=== PATIENT | female | born 1985 | race Caucasian/White ===

== ENCOUNTER 2022-12-06 06:13 | Emergency (ER) | payer BC ==
[2022-12-06] MEDS ORDERED: Ketorolac 60 MG/2 ML SDV IM ONE (06:42)
[2022-12-06] MEDS ORDERED: Ondansetron 4 MG Tab.DIS PO ONE (06:42)
== END 2022-12-06 07:48 | disposition home or self-care (01) ==
LOC: JD.ED 06:13
DX: N20.0 Calculus of kidney (principal)
CPT/HCPCS: 36415; 80053; 81001; 85025; 96372; 99284; A9270; J1885; 99282

== ENCOUNTER 2025-03-26 09:42 | Day surgery (SDC) | payer BC, OTHER ==
[~2025-03-26 09:42] MED LIST: Sodium Chloride 0.9% 10 ML Syringe FLUSH PRN; Sodium Chloride 0.9% 10 ML Syringe FLUSH SCH
[2025-03-26] MEDS: Lactated Ringers 1,000 ML IV SCH (10:25)
[2025-03-26] MEDS ORDERED: propofoL 500 MG/50 ML 50 ML ONE (10:26)
[2025-03-26] MEDS ORDERED: dexmedeTOMIDine HCl 200 MCG/2 ML SDV ONE (10:28)
[2025-03-26] MEDS ORDERED: Propofol 200 MG/20 ML SDV ONE (12:02)
[2025-03-26] MEDS: Bupivacaine 0.5% 10 ML SDV ONE (12:05)
[2025-03-26] MEDS: EPINEPHrine 1 MG/ML SDV ONE (12:05)
[2025-03-26] MEDS: Lidocaine 1% 10 ML MDV ONE (12:05)
[2025-03-26] MEDS ORDERED: fentaNYL 100 MCG/2 ML SDV ONE (12:07)
[2025-03-26] MEDS ORDERED: Ondansetron 4 MG/2 ML SDV ONE (12:14)
[2025-03-26] MEDS ORDERED: fentaNYL 100 MCG/2 ML SDV IVPUSH PRN (12:28)
[2025-03-26] MEDS ORDERED: Ondansetron 4 MG/2 ML SDV IVPUSH PRN (12:28)
[2025-03-26] MEDS: Ketorolac 30 MG/ML SDV IVPUSH ONE (13:11)
[2025-03-26] MEDS: Acetaminophen/oxyCODONE 325-5 MG Tab PO PRN (13:42)
== END 2025-03-26 14:07 | disposition home or self-care (01) ==
LOC: JD.SDS 09:42
PROVIDERS: ATTEND Surgery
DX: D12.3 Benign neoplasm of transverse colon (principal); D12.7 Benign neoplasm of rectosigmoid junction; K60.30 Anal fistula, unspecified; K57.30 Diverticulosis of large intestine without perforation or abscess without bleeding; K64.8 Other hemorrhoids; K64.4 Residual hemorrhoidal skin tags; Z86.0100 Personal history of colon polyps, unspecified; J45.909 Unspecified asthma, uncomplicated; Z79.899 Other long term (current) drug therapy
CPT/HCPCS: 45380; 46270; A9270; J0171; J0665; J1885; J2003; J2405; J2704; J3010; J7120; 00902